=== PATIENT | male | born 1980 | race Caucasian/White ===

== ENCOUNTER 2017-05-17 20:15 | Emergency (ER) | payer MEDICARE ==
[2017-05-17 20:50] VITALS: BP 138/90
[2017-05-17] MEDS ORDERED: CIPR500T94 PO (21:23)
--- NOTE | 2017-05-17 21:23 | PHYS DOC ---
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 EYE SURGERIES, HEMORRHOIDS Alcohol Use: None Drug Use: None Adult General Chief Complaint Chief Complaint: FOOT INJURY PAIN [facility] HPI Patient is a 36 year old male presents to the emergency department stating that he stepped on a nail. He states that he went through his tennis shoe. Patient states that he did pulled the nail out of his foot and shoe he states that it was a very brian nail. He is unsure when his last tetanus shot occurred. He denies any fever, chills or any nausea vomiting at this time. Patient states the right nail came into his shoe and hit him in the right great toe between the first and second. Patient states he has not taken anything for pain and discomfort. Review of Systems Review of Systems Constitutional: Denies fever or chills [] Eyes: Denies change in visual acuity, redness, or eye pain [] HENT: Denies nasal congestion or sore throat [] Respiratory: Denies cough or shortness of breath [] Cardiovascular: No additional information not addressed in HPI [] GI: Denies abdominal pain, nausea, vomiting, bloody stools or diarrhea [] : Denies dysuria or hematuria [] Musculoskeletal: Denies back pain or joint pain [] Integument: Denies rash or skin lesions. Nail into the side of the right great toe on the medial side Neurologic: Denies headache, focal weakness or sensory changes [] Endocrine: Denies polyuria or polydipsia [] Physical Exam Physical Exam Constitutional: Well developed, well nourished, no acute distress, non-toxic appearance. [] HENT: Normocephalic, atraumatic, bilateral external ears normal, oropharynx moist, no oral exudates, nose normal. [] Eyes: PERRLA, EOMI, conjunctiva normal, no discharge. [] Neck: Normal range of motion, no tenderness, supple, no stridor. [] Cardiovascular:Heart rate regular rhythm Lungs & Thorax: No respiratory distress noted. Skin: Warm, dry, no erythema, no rash. Patient with a skin abrasion to the inner part of the right great toe. No drainage or discharge noted from the site. Toe appears to be normal with no redness no bruising or discoloration noted. Back: No tenderness Extremities: No tenderness, no cyanosis, no clubbing, ROM intact, no edema. [] Neurologic: Alert and oriented X 3, normal motor function, normal sensory function, no focal deficits noted. [] Psychologic: Affect normal, judgement normal, mood normal. [] Current Patient Data Vital Signs Vital Signs Date Time Temp Pulse Resp B/P (MAP) Pulse Ox O2 Delivery O2 Flow Rate FiO2 05/17/17 20:50 98.0 72 18 94 Room Air 98.0 EKG EKG [] Radiology/Procedures Radiology/Procedures [] Course & Med Decision Making Course & Med Decision Making Pertinent Labs and Imaging studies reviewed. (See chart for details) X-ray was negative for any bony abnormalities. Right foot was right foot was soaked in Betadine and saline. For approximately 20 minutes Patient will be placed on Cipro with recommendations for ice packs on 20 minutes off 20 minutes several times a day elevation as much as possible. Patient will be updated with a tetanus immunization. Recommended ibuprofen 800 mg every 8 hours with food stop taking few develop an upset stomach. Patient was encouraged to follow-up the primary care physician next 3-5 days. Signs and symptoms to return back to emergency prior has been provided. All questions and concerns been answered at patient's bedside. [] Dragon Disclaimer Dragon Disclaimer This electronic medical record was generated, in whole or in part, using a voice recognition dictation system. Departure Departure Impression: Primary Impression: Superficial foreign body, right great toe, initial encounter Disposition: 01 HOME, SELF-CARE Condition: STABLE Referrals: UNKNOWN PCP NAME (PCP) Patient Instructions: Foreign Body-Brief Additional Instructions: Activity as tolerated. Medications as prescribed. Tylenol or ibuprofen for pain and discomfort. Warm Epsom salt soaks to the foot 4 times a day. Follow-up the primary care physician next 3-5 days. Return back to emergency prior signs symptoms that become worse. Scripts Ciprofloxacin Hcl (CIPRO) 500 Mg Tablet 1 TAB PO BID, #14 TAB Prov: KEESHA YOUNGER APRN 05/17/17 KEESHA YOUNGER APRN May 17, 2017 21:23
[2017-05-17] MEDS ORDERED: IBUPROFEN 800 MG TABLET. PO ONE (21:45)
[2017-05-17] MEDS ORDERED: DIPHTH,PERTUSS(ACELL),TET TOX 0.5 ML DISP.SYRIN. VAX IM ONE (21:45)
--- NOTE | 2017-05-18 07:43 | RAD ---
Exam performed: 3 views right first toe. History: First digit injury, nail and accident. Date of service: 05/17/17. Comparison: None available 3 views right first toe including single view foot findings: Normal alignment is preserved. There is no acute fracture or dislocation. There is soft tissue swelling in the foot, no foreign body. Impression: No acute bony abnormality seen in the right first toe
== END 2017-05-17 21:55 | disposition home or self-care (01) ==
LOC: ER 20:15
DX: S90.451A Superficial foreign body, right great toe, initial encounter (principal); I10 Essential (primary) hypertension; E78.00 Pure hypercholesterolemia, unspecified; W45.0XXA Nail entering through skin, initial encounter; Y93.9 Activity, unspecified; Y99.8 Other external cause status; Y92.89 Other specified places as the place of occurrence of the external cause
CPT/HCPCS: 73660; 90471; 90715; 99284-25

== ENCOUNTER 2018-06-24 22:02 | Emergency (ER) | payer MEDICARE ==
[~2018-06-24] VITALS: Ht 182.9 cm; Wt 115.7 kg
[~2018-06-24 22:02] MED LIST: CIPR500T94 PO
--- NOTE | 2018-06-24 22:41 | PHYS DOC ---
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 EYE SURGERIES, HEMORRHOIDS Alcohol Use: None Drug Use: None Adult General Chief Complaint Chief Complaint: MECHANICAL FALL HPI HPI Patient is a 37-year-old male who presents to the emergency department for evaluation. He states he is legally blind, with only mild light perception in both eyes. He states that he has been preparing to move and was loading a [employer] truck today, when he struck the right side of his nose and face against an awning, causing him to fall backwards. He states he hit his head on the ground and may have lost consciousness for a few minutes. He has not had any vomiting. He does complain primarily of facial pain diffusely and has an abrasion on the right side of his nose. His last tetanus was about 1 year ago. He has some mild generalized neck pain in the cervical collar was applied at triage. He has not had any numbness or weakness, denies any pain distal to his neck. He denies any extremity pain or focal weakness, abdominal pain or chest pain, dizziness, or lightheadedness. He has not had any acute vision changes, and is chronically blind. There are no alleviating or exacerbating factors to his symptoms. Review of Systems Review of Systems Constitutional: Denies fever or chills [] Eyes: Denies ocular pain redness, or eye pain [] HENT: Denies nasal congestion or sore throat [] Respiratory: Denies cough or shortness of breath [] Cardiovascular: The patient denies any shortness of breath, chest pain, palpitations, or orthopnea [] GI: Denies abdominal pain, nausea, vomiting, bloody stools or diarrhea [] : Denies dysuria or hematuria [] Musculoskeletal: Denies back pain or joint pain [] Integument: Denies rash or skin lesions [] Neurologic: Denies focal weakness or sensory changes. Reports mild generalized headache [] Endocrine: Denies polyuria or polydipsia [] All other systems were reviewed and found to be within normal limits, except as documented in this note. Current Medications Current Medications Current Medications Medications (Trade) Dose Ordered Sig/Genia Start Time Stop Time Status Last Admin Dose Admin Oxycodone/ Acetaminophen (Percocet 5/325) 1 tab 1X ONCE 06/24/18 22:30 06/24/18 22:31 DC 06/24/18 23:10 1 TAB Allergies Allergies Allergies Coded Allergies Type Severity Reaction Last Updated Verified Penicillins Allergy Severe THROAT CLOSES 05/17/17 Yes strawberry Allergy Severe THROAT CLOSES 05/17/17 Yes Physical Exam Physical Exam PHYSICAL EXAM: CONSTITUTIONAL: Well developed, well nourished HEAD: normocephalic, atraumatic EENT: The globes appear atraumatic. There is no response to light. There is an abrasion on the right lateral aspect of the nose, without internal nose laceration or injury, and no septal hematoma. There is no definite nasal bone tenderness to palpation or deformity. There is mild right maxillary tenderness to palpation without crepitus or significant soft tissue swelling. The patient is chronically edentulous.. Conjunctivae normal color, sclerae non-icteric; moist mucous membranes. NECK: Supple, ; no meningismus. LUNGS: Lungs CTA, breathing even and unlabored. Normal air movement. HEART: Regular rate and rhythm, no murmur CHEST: No deformity; non-tender ABDOMEN: The abdomen is soft, and non-tender, no masses or bruits. EXTREM: Normal ROM; no deformity, no calf tenderness. Normal pulses palpable in all extremities. There is no pedal edema. SKIN: No rash; no diaphoresis NEURO: Alert; normal speech and cognition; CN's grossly intact; strength grossly intact without focal deficit. BACK: No CVA TTP.There is no bony tenderness to palpation of the thoracic or lumbar spine. Current Patient Data Vital Signs Vital Signs Date Time Temp Pulse Resp B/P (MAP) Pulse Ox O2 Delivery O2 Flow Rate FiO2 06/24/18 23:10 16 99 Room Air 06/24/18 22:02 98.2 84 151/104 (120) 98.2 EKG EKG [] Radiology/Procedures Radiology/Procedures [PROCEDURE: CT HEAD AND MAXILLOFACIAL WO CT scan of the head without contrast 06/24/2018 Clinical History: Head trauma. Technique: Unenhanced, contiguous, 5 mm axial sections were obtained through the head. One or more of the following individualized dose reduction techniques were utilized for this study: 1. Automated exposure control. 2. Adjustment of the mA and/or kV according to patient size. 3. Use of iterative reconstruction technique. Findings: The ventricles and sulci are within normal limits in size and configuration. No acute parenchymal abnormality is seen. No extra-axial fluid collection is noted. No skull fracture is seen. IMPRESSION: Negative study. CT scan of the facial bones without contrast 06/24/2018 Clinical history: Facial injury. Technique: Unenhanced, contiguous, 0.625 mm axial sections were obtained through the facial bones and orbits. 3 mm reconstructed sagittal, axial and coronal images were obtained. One or more of the following individualized dose reduction techniques were utilized for this study: 1. Automated exposure control. 2. Adjustment of the mA and/or kV according to patient size. 3. Use of iterative reconstruction technique. Findings: No facial bone fracture is seen. Both orbits are intact. The patient is edentulous. The paranasal sinuses are essentially clear. No air-fluid level is noted. IMPRESSION: No facial bone fracture is seen.] PROCEDURE: CT CERVICAL SPINE WO CONTRAST CT scan of the cervical spine without contrast 06/24/2018 Clinical history: Neck injury. Technique: Unenhanced, contiguous, 0.625 mm axial sections were obtained through the cervical spine. Axial, coronal and sagittal reconstructed images were obtained. One or more of the following individualized dose reduction techniques were utilized for this study: 1. Automated exposure control. 2. Adjustment of the mA and/or kV according to patient size. 3. Use of iterative reconstruction technique. Findings: Sagittal and coronal reconstructed images demonstrate minimal lateral curvature of the cervical spine, convex to the right. There is straightening of the normal cervical lordosis. No fracture or subluxation of the cervical vertebrae is seen. Impression: No fracture or subluxation of the cervical vertebra is identified. Course & Med Decision Making Course & Med Decision Making Pertinent Imaging studies reviewed. (See chart for details) [11:20 PM:Patient remains stable. I discussed test results, the need for close follow-up, and return precautions.] Dragon Disclaimer Dragon Disclaimer This electronic medical record was generated, in whole or in part, using a voice recognition dictation system. Departure Departure Impression: Primary Impression: Facial abrasion Additional Impression: Closed head injury Disposition: 01 HOME, SELF-CARE Condition: STABLE Referrals: UNKNOWN PCP NAME (PCP) Patient Instructions: Abrasions, Facial or Scalp Contusion, Head Injury, Adult Problem Qualifiers NATALY DAVISON MD Jun 24, 2018 22:41
--- NOTE | 2018-06-24 23:05 | RAD ---
CT scan of the head without contrast 06/24/2018 Clinical History: Head trauma. Technique: Unenhanced, contiguous, 5 mm axial sections were obtained through the head. One or more of the following individualized dose reduction techniques were utilized for this study: 1. Automated exposure control. 2. Adjustment of the mA and/or kV according to patient size. 3. Use of iterative reconstruction technique. Findings: The ventricles and sulci are within normal limits in size and configuration. No acute parenchymal abnormality is seen. No extra-axial fluid collection is noted. No skull fracture is seen. IMPRESSION: Negative study. CT scan of the facial bones without contrast 06/24/2018 Clinical history: Facial injury. Technique: Unenhanced, contiguous, 0.625 mm axial sections were obtained through the facial bones and orbits. 3 mm reconstructed sagittal, axial and coronal images were obtained. One or more of the following individualized dose reduction techniques were utilized for this study: 1. Automated exposure control. 2. Adjustment of the mA and/or kV according to patient size. 3. Use of iterative reconstruction technique. Findings: No facial bone fracture is seen. Both orbits are intact. The patient is edentulous. The paranasal sinuses are essentially clear. No air-fluid level is noted. IMPRESSION: No facial bone fracture is seen. Electronically signed by: Chris Alcaraz MD (06/24/2018 11:01 PM) [facility]
--- NOTE | 2018-06-24 23:09 | RAD ---
CT scan of the cervical spine without contrast 06/24/2018 Clinical history: Neck injury. Technique: Unenhanced, contiguous, 0.625 mm axial sections were obtained through the cervical spine. Axial, coronal and sagittal reconstructed images were obtained. One or more of the following individualized dose reduction techniques were utilized for this study: 1. Automated exposure control. 2. Adjustment of the mA and/or kV according to patient size. 3. Use of iterative reconstruction technique. Findings: Sagittal and coronal reconstructed images demonstrate minimal lateral curvature of the cervical spine, convex to the right. There is straightening of the normal cervical lordosis. No fracture or subluxation of the cervical vertebrae is seen. Impression: No fracture or subluxation of the cervical vertebra is identified. Electronically signed by: Chris Alcaraz MD (06/24/2018 11:05 PM) [facility]
[2018-06-24] MEDS: oxyCODONE/APAP 5/325 1 TAB TABLET PO ONE (23:10)
[2018-06-24 23:30] VITALS: BP 165/92
== END 2018-06-24 23:30 | disposition home or self-care (01) ==
LOC: ER 22:02
DX: S00.31XA Abrasion of nose, initial encounter (principal); S09.90XA Unspecified injury of head, initial encounter; E78.00 Pure hypercholesterolemia, unspecified; I10 Essential (primary) hypertension; Z88.0 Allergy status to penicillin; Z91.018 Allergy to other foods; W18.39XA Other fall on same level, initial encounter; Y93.89 Activity, other specified; Y92.89 Other specified places as the place of occurrence of the external cause; Y99.8 Other external cause status
CPT/HCPCS: 70450; 70486; 72125; 99284-25